=== PATIENT | female | born 1975 | race Caucasian/White ===

== ENCOUNTER 2017-05-24 07:18 | Outpatient (CLI) | payer OTHER ==
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
== END 2017-05-24 07:19 | disposition home or self-care (01) ==
LOC: MRI 07:18
PROVIDERS: ATTEND Family Medicine
DX: M47.26 Other spondylosis with radiculopathy, lumbar region (principal); V89.2XXS Person injured in unspecified motor-vehicle accident, traffic, sequela
CPT/HCPCS: 72148

== ENCOUNTER 2019-10-25 15:02 | Outpatient (CLI) | payer OTHER ==
--- NOTE | 2019-10-25 16:40 | RAD ---
EXAM: CERVICAL SPINE FOUR VIEWS: 10/25/19 HISTORY: Spondylosis without myelopathy or radiculopathy cervical region. Exam includes flexion and extension standing lateral views. Multilevel disc osteophytosis and facet arthrosis changes. No prevertebral abnormal soft tissue swell ing. No abnormal translation between flexion and extension. IMPRESSION: Cervical spondylosis without abnormal translation or other acute process. POS: [facility]
--- NOTE | 2019-10-25 17:15 | MRI ---
MRI cervical spine noncontrast: DATE: 10/25/2019 HISTORY: 43-year-old female with cervical radiculopathy and cervicalgia FINDINGS: Loss of lordosis which could be due to muscle spasm or positioning. Cervical spinal cord is normal in size and signal. Vertebral body heights are maintained. No high-grade disc space narrowing at any level. Mild and moderate degenerative facet changes bilaterally at certain levels. Normal bone marrow signal. C1-2: No central stenosis. C2-3: No central or neural foraminal stenosis. C3-4: Broad-based disc-osteophytic bar complex, asymmetrically larger on the left than right protrude s into the anterior aspect of spinal canal. Mild central stenosis, especially on the left. Left small to moderate-sized uncinate process osteophytes cause moderate left neural foraminal stenosis. N o high-grade right neural foraminal stenosis. C4-5: Small to moderate-sized bilateral uncinate process osteophytes cause moderate right neural fora sabine stenosis and severe left neural foraminal stenosis. Mild, shallow broad-based disc-osteophytic bar complex causes moderate central spinal canal stenosis. C5-6: Small bilateral uncinate process osteophytes. No high-grade neural foraminal stenosis. Tiny katelyn tral focal disc protrusion or focal disc-osteophyte complex abuts the ventral surface of spinal cord. Moderate central spinal canal stenosis. C6-7: Right uncinate process small bilateral osteophytes cause mild bilateral neural foraminal stenos is. Mild central spinal canal stenosis due to shallow disc-osteophytic bar complex. C7-T1: Essentially normal. IMPRESSION: 1. Predominantly mild cervical spondylosis. 2. Neural foraminal stenosis of varying degrees, worst on the left at C4-5
== END 2019-10-25 15:03 | disposition home or self-care (01) ==
LOC: BICMRI 15:02
PROVIDERS: ATTEND Specialist
DX: M47.22 Other spondylosis with radiculopathy, cervical region (principal); M48.02 Spinal stenosis, cervical region
CPT/HCPCS: 72050; 72141

== ENCOUNTER 2020-04-18 16:15 | Outpatient (CLI) | payer OTHER ==
--- NOTE | 2020-04-18 17:02 | RAD ---
LUMBAR SPINE FOUR VIEWS: 04/18/20 HISTORY: Low back pain radiating to the right leg. FINDINGS/IMPRESSION: A limbus vertebra is noted at L4. The well corticated secondary ossification center of the anterior s uperior vertebral body corner of L4 demonstrates no edema on the recent MRI of 04/03/20. The flexion and extension views demonstrate no evidence of change in alignment. No acute fracture or subluxation is seen. POS: [facility]
== END 2020-04-18 16:16 | disposition home or self-care (01) ==
LOC: SCSRAD 16:15
PROVIDERS: ATTEND Specialist
DX: M54.16 Radiculopathy, lumbar region (principal)
CPT/HCPCS: 72110